=== PATIENT | female | born 1995 ===

== ENCOUNTER 2021-10-25 21:57 | Outpatient (CLI) | payer OTHER | END 2021-10-25 21:58 | disposition critical access hospital (66) | LOC: EMS 21:57 | DX: T39.1X2A Poisoning by 4-Aminophenol derivatives, intentional self-harm, initial encounter (principal); T39.312A Poisoning by propionic acid derivatives, intentional self-harm, initial encounter; T44.7X2A Poisoning by beta-adrenoreceptor antagonists, intentional self-harm, initial encounter; R11.0 Nausea; R45.89 Other symptoms and signs involving emotional state | CPT/HCPCS: A0425; A0429 ==

== ENCOUNTER 2021-10-25 22:14 | Emergency (ER) | payer OTHER ==
[2021-10-25] MEDS: SODIUM CHLORIDE 0.9% 1,000 ML IV STA (22:20)
[2021-10-25 22:38] LABS: BASOPHILS % (AUTO) 0.5 %; EOSINOPHILS % (AUTO) 0.3 %; HCT - HEMATOCRIT 38.3 % (37.0-47.0); LYMPHOCYTES # (AUTO) 1.2 10^3/uL (1.5-3.5); LYMPHOCYTES % (AUTO) 19.5 %; MEAN CORPUSCULAR HEMOGLOBIN 28.4 pg (27.0-31.0); MEAN CORPUSCULAR HGB CONC 33.9 g/dL (32.0-36.0); MEAN CORPUSCULAR VOLUME 83.8 fL (81.0-99.0); MEAN PLATELET VOLUME 9.2 fL (7.9-10.8); MONOCYTES # (AUTO) 0.3 10^3/uL (0.0-1.0); MONOCYTES % (AUTO) 4.6 %; NEUTROPHILS # (AUTO) 4.4 10^3/uL (1.5-6.6); NEUTROPHILS % (AUTO) 74.9 %; PLT - PLATELET COUNT 347 10^3/uL (130-450); RED BLOOD COUNT 4.57 10^6/uL (4.20-5.40); RED CELL DISTRIBUTION WIDTH 12.5 % (12.0-15.0); WHITE BLOOD COUNT 5.9 x10^3/uL (4.8-10.8)
[2021-10-25 22:39] LABS: VBG BASE EXCESS -3.4 mmol/L (-2 - +2); VBG HCO3 17.6 mmol/L (23-28); VBG PCO2 22.7 mmHg (41-51); VBG PH 7.508 (7.31-7.41); VBG PO2 39.8 mmHg (25-47); VBG TOTAL CO2 18.3 mmol/L (24-29)
[2021-10-25 22:40] LABS: VBG OXYGEN SATURATION 81.6 % (60-80)
[2021-10-25 22:49] LABS: MUDS CUTOFF CONCENTRATIONS CUTOFF CONC BELOW:
[2021-10-25 22:53] LABS: GLUCOSE, URINE (UA) NEGATIVE (NEGATIVE); KETONES,URINE (UA) 40 mg/dL (NEGATIVE); LEUKOCYTE ESTERASE, URINE NEGATIVE (NEGATIVE); NITRITE,URINE NEGATIVE (NEGATIVE); OCCULT BLOOD,URINE SMALL (NEGATIVE); PH,URINE 5.5 PH (5.0-7.5); PROTEIN,URINE TRACE mg/dL (NEGATIVE); UROBILINOGEN,URINE 0.2 (NORMAL) E.U./dL (NORMAL)
[2021-10-25 22:54] LABS: ACETAMINOPHEN 27 ug/mL (10-30); ALBUMIN 4.1 g/dL (3.2-5.5); ALBUMIN/GLOBULIN RATIO 1.4 (1.0-2.2); ALKALINE PHOSPHATASE 52 IU/L (42-121); ALT ALANINE AMINOTRANSFERASE 17 IU/L (10-60); AST ASPARTATE AMINOTRANSFERASE 22 IU/L (10-42); BILIRUBIN,TOTAL 0.6 mg/dL (0.2-1.0); BUN - BLOOD UREA NITROGEN 10 mg/dL (6-20); CALCIUM 8.6 mg/dL (8.5-10.3); CARBON DIOXIDE - CO2 18 mmol/L (21-32); CHLORIDE 106 mmol/L (101-111); CREATININE 0.8 mg/dL (0.4-1.0); ETOH - ETHANOL < 5.0 mg/dL; GFR - MDRD 88 (>89); GLUCOSE 114 mg/dL (70-100); LIPASE 25 U/L (22-51); POTASSIUM 3.4 mmol/L (3.5-5.0); SALICYLATE < 6.0 mg/dL; SODIUM 138 mmol/L (135-145); TOTAL PROTEIN 7.1 g/dL (6.7-8.2)
--- NOTE | 2021-10-25 23:02 | ED Physician Documentation ---
History of Present Illness - Stated complaint Stated Complaint: OD - Chief complaint Chief Complaint: MHE - Additonal information Additional information: 26yF presents s/p attempted overdose. 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 Patient states the last time she took tylenol was 4pm and she thinks she took about 9 tablets at that time. she is unsure of time course on the propranolol or ibuprofen. endorses SI and states she doesn't want to live anymore and she took pills in attempt to end her life. further history limited by patient emotional distress/tearfulness. Review of Systems Unable to obtain: Uncooperative PD PAST MEDICAL HISTORY - Present Medications Home Medications: Ambulatory Orders Medication Instructions Recorded Confirmed Propranolol [Inderal] 10 mg PO DAILY 10/25/21 10/25/21 - Allergies Allergies/Adverse Reactions: Allergies Allergy/AdvReac Type Severity Reaction Status Date / Time No Known Drug Allergies Allergy Verified 10/25/21 22:26 PD ED PE NORMAL - Vitals Vital signs reviewed: Yes - General General: Alert and oriented X 3, No acute distress, Well developed/nourished, Other (tearful appearing) - HEENT HEENT: Atraumatic, PERRL, EOMI, Moist mucous membranes, Pharynx benign - Neck Neck: Supple, no meningeal sign - Cardiac Cardiac: RRR - Respiratory Respiratory: No respiratory distress, Clear bilaterally - Abdomen Abdomen: Non tender, Non distended - Derm Derm: Normal color, Warm and dry - Extremities Extremities: No deformity - Neuro Neuro: Alert and oriented X 3, No motor deficit, No sensory deficit - Psych Psych: Other (tearful, depressed affect, with quiet, slow speech. blunted affect. limited eye contact) Results - Vitals Vitals: Vital Signs - 24 hr 10/25/21 10/25/21 10/26/21 22:49 23:00 00:30 Temperature 37.3 C Heart Rate 88 91 90 Respiratory 25 H 13 13 Rate Blood Pressure 107/64 111/70 110/69 O2 Saturation 100 100 99 10/26/21 10/26/21 10/26/21 01:00 01:30 02:00 Temperature Heart Rate 84 89 99 Respiratory 23 27 H 17 Rate Blood Pressure 110/64 108/64 106/67 O2 Saturation 98 98 97 10/26/21 10/26/21 10/26/21 02:30 03:00 04:30 Temperature Heart Rate 94 94 94 Respiratory 22 18 17 Rate Blood Pressure 113/68 107/65 106/60 O2 Saturation 94 98 93 Oxygen O2 Source Room air - EKG (time done) 2247 Rate: Rate (enter#) (89) Rhythm: NSR Intervals: Prolonged QT (qt 410/[id number]) - Labs Labs: Laboratory Tests 10/25/21 10/25/21 10/25/21 22:33 22:33 22:33 WBC 5.9 RBC 4.57 Hgb 13.0 Hct 38.3 MCV 83.8 MCH 28.4 MCHC 33.9 RDW 12.5 Plt Count 347 MPV 9.2 Neut # (Auto) 4.4 Lymph # (Auto) 1.2 L [place] # (Auto) 0.3 Eos # (Auto) 0.0 Baso # (Auto) 0.0 Absolute Nucleated RBC 0.00 Nucleated RBC % 0.0 VBG pH VBG pCO2 VBG pO2 VBG HCO3 VBG Total CO2 VBG O2 Saturation VBG Base Excess Sodium 138 Potassium 3.4 L Chloride 106 Carbon Dioxide 18 L Anion Gap 14.0 H BUN 10 Creatinine 0.8 Estimated GFR (MDRD) 88 L Glucose 114 H Lactic Acid Calcium 8.6 Total Bilirubin 0.6 AST 22 ALT 17 Alkaline Phosphatase 52 Total Protein 7.1 Albumin 4.1 Globulin 3.0 Albumin/Globulin Ratio 1.4 Lipase 25 TSH 0.65 Urine Color Urine Clarity Urine pH Ur Specific [place] Urine Protein Urine Glucose (UA) Urine Ketones Urine Occult Blood Urine Nitrite Urine Bilirubin Urine Urobilinogen Ur Leukocyte Esterase Urine RBC Urine WBC Ur Epithelial Cells Ur Squamous Epith Cells Urine Bacteria Ur Microscopic Review Urine Culture Comments Urine HCG, Qual Salicylates < 6.0 Urine Opiates Screen Ur Oxycodone Screen Urine Methadone Screen Ur Propoxyphene Screen Acetaminophen 27 Ur Barbiturates Screen Ur Tricyclics Screen Ur Phencyclidine Scrn Ur Amphetamine Screen U Methamphetamines Scrn U Benzodiazepines Scrn Urine Cocaine Screen U Cannabinoids Screen Ethyl Alcohol < 5.0 10/25/21 10/25/21 10/25/21 22:33 22:33 22:38 WBC RBC Hgb Hct MCV MCH MCHC RDW Plt Count MPV Neut # (Auto) Lymph # (Auto) [place] # (Auto) Eos # (Auto) Baso # (Auto) Absolute Nucleated RBC Nucleated RBC % VBG pH 7.508 H VBG pCO2 22.7 L VBG pO2 39.8 VBG HCO3 17.6 L VBG Total CO2 18.3 L VBG O2 Saturation 81.6 H VBG Base Excess -3.4 L Sodium Potassium Chloride Carbon Dioxide Anion Gap BUN Creatinine Estimated GFR (MDRD) Glucose Lactic Acid 1.8 Calcium Total Bilirubin AST ALT Alkaline Phosphatase Total Protein Albumin Globulin Albumin/Globulin Ratio Lipase TSH Urine Color DARK YELLOW Urine Clarity HAZY Urine pH 5.5 Ur Specific [place] 1.025 Urine Protein TRACE Urine Glucose (UA) NEGATIVE Urine Ketones 40 H Urine Occult Blood SMALL H Urine Nitrite NEGATIVE Urine Bilirubin NEGATIVE Urine Urobilinogen 0.2 (NORMAL) Ur Leukocyte Esterase NEGATIVE Urine RBC 0-5 Urine WBC 0-3 Ur Epithelial Cells GROUP BURNER MACHINE Ur Squamous Epith Cells FEW Squamous Urine Bacteria None Seen Ur Microscopic Review INDICATED Urine Culture Comments NOT INDICATED Urine HCG, Qual NEGATIVE Salicylates Urine Opiates Screen NEGATIVE Ur Oxycodone Screen NEGATIVE Urine Methadone Screen NEGATIVE Ur Propoxyphene Screen NEGATIVE Acetaminophen Ur Barbiturates Screen NEGATIVE Ur Tricyclics Screen NEGATIVE Ur Phencyclidine Scrn NEGATIVE Ur Amphetamine Screen NEGATIVE U Methamphetamines Scrn NEGATIVE U Benzodiazepines Scrn NEGATIVE Urine Cocaine Screen NEGATIVE U Cannabinoids Screen NEGATIVE Ethyl Alcohol 10/26/21 10/26/21 04:07 04:07 WBC RBC Hgb Hct MCV MCH MCHC RDW Plt Count MPV Neut # (Auto) Lymph # (Auto) [place] # (Auto) Eos # (Auto) Baso # (Auto) Absolute Nucleated RBC Nucleated RBC % VBG pH VBG pCO2 VBG pO2 VBG HCO3 VBG Total CO2 VBG O2 Saturation VBG Base Excess Sodium 136 Potassium 3.4 L Chloride 107 Carbon Dioxide 18 L Anion Gap 11.0 BUN 9 Creatinine 0.7 Estimated GFR (MDRD) 103 Glucose 88 Lactic Acid Calcium 8.0 L Total Bilirubin 0.7 AST 17 ALT 15 Alkaline Phosphatase 49 Total Protein 6.3 L Albumin 3.4 Globulin 2.9 Albumin/Globulin Ratio 1.2 Lipase 27 TSH Urine Color Urine Clarity Urine pH Ur Specific [place] Urine Protein Urine Glucose (UA) Urine Ketones Urine Occult Blood Urine Nitrite Urine Bilirubin Urine Urobilinogen Ur Leukocyte Esterase Urine RBC Urine WBC Ur Epithelial Cells Ur Squamous Epith Cells Urine Bacteria Ur Microscopic Review Urine Culture Comments Urine HCG, Qual Salicylates Urine Opiates Screen Ur Oxycodone Screen Urine Methadone Screen Ur Propoxyphene Screen Acetaminophen 10 Ur Barbiturates Screen Ur Tricyclics Screen Ur Phencyclidine Scrn Ur Amphetamine Screen U Methamphetamines Scrn U Benzodiazepines Scrn Urine Cocaine Screen U Cannabinoids Screen Ethyl Alcohol PD MEDICAL DECISION MAKING - ED course ED course: 26yF presents with suicide attempt with low dose propranolol, ibuprofen, tylenol. Tylenol is the main clinically significant potential ingestion per tox. on patient questioning it appears her ingestion of tylenol was spaced out over the course of the day with last ingestion 4pm. Patient c/o nausea but no vomiting. symptomatic care provided. patient had 1L NS via ems and a 2nd liter is hanging now. vitals and exam WNL. Tox labs sent. Tylenol level 27 at 6 hours post ingestion. unlikely to have a clinically significant overdose given the time frame. 12am - d/w Dr. Chris Kent , spindle repairer at poison control center who recommends 4 hour f/u LFTs and tylenol level. If normal (tylenol 10 or less), then we can medically clear. 4:30am - lft's continue to be normal and tylenol level is 10. patient medically cleared for voluntary psych placement.
[2021-10-25 23:03] LABS: BILIRUBIN,URINE NEGATIVE (NEGATIVE); ICTOTEST,URINE NEGATIVE
[2021-10-25 23:04] LABS: AMPHETAMINE SCREEN,URINE NEGATIVE (NEGATIVE); BARBITURATE SCREEN,UR NEGATIVE (NEGATIVE); BENZODIAZEPINES SCREEN, URINE NEGATIVE (NEGATIVE); CLARITY,URINE HAZY (CLEAR); COCAINE SCREEN URINE NEGATIVE (NEGATIVE); HCG UR QUAL NEGATIVE; METHADONE SCREEN, URINE NEGATIVE (NEGATIVE); METHAMPHETAMINES SCREEN, URINE NEGATIVE (NEGATIVE); OPIATE SCREEN, URINE NEGATIVE (NEGATIVE); OXYCODONE SCREEN, URINE NEGATIVE (NEGATIVE); PROPOXYPHENE SCREEN, URINE NEGATIVE (NEGATIVE); THC CANNABINOID SCREEN, URINE NEGATIVE (NEGATIVE); TRICYCLIC ANTIDEPRESSANT,URINE NEGATIVE (NEGATIVE)
[2021-10-25 23:12] LABS: RBC,URINE 0-5 /HPF (0-5); SQUAMOUS EPITHELIAL CELL,UR FEW Squamous (<= Few); WBC,URINE 0-3 /HPF (0-5)
[2021-10-25] MEDS: ONDANSETRON 4 MG/2 ML VIAL IVP STA (23:12)
[2021-10-25] MEDS: FAMOTIDINE 20 MG/2 ML VIAL IVP STA (23:12)
[2021-10-25 23:13] LABS: BACTERIA,URINE None Seen /HPF (None Seen)
[2021-10-26] MEDS: SODIUM CHLORIDE 0.9% 1,000 ML IV STA (00:27)
[2021-10-26] MEDS ORDERED: haloperidoL 1 MG TABLET PO STA (04:18)
[2021-10-26 04:25] LABS: ALBUMIN 3.4 g/dL (3.2-5.5); ALBUMIN/GLOBULIN RATIO 1.2 (1.0-2.2); BILIRUBIN,TOTAL 0.7 mg/dL (0.2-1.0); CREATININE 0.7 mg/dL (0.4-1.0); POTASSIUM 3.4 mmol/L (3.5-5.0); TOTAL PROTEIN 6.3 g/dL (6.7-8.2)
[2021-10-26 06:12] LABS: CORONAVIRUS 229E-RESP PCR NOT DETECTED; CORONAVIRUS HKU1-RESP PCR NOT DETECTED; CORONAVIRUS NL63-RESP PCR NOT DETECTED; CORONAVIRUS OC43-RESP PCR NOT DETECTED
[2021-10-26 06:14] LABS: B. PARAPERTUSSIS- RESP PCR PAN NOT DETECTED; B. PERTUSSIS- RESP PCR PANEL NOT DETECTED; C. PNEUMONIAE- RESP PCR PANEL NOT DETECTED; HUMAN METAPNEUMOVIRUS NOT DETECTED; INFLUENZA A- RESP PCR PANEL NOT DETECTED; INFLUENZA B - RESP PCR PANEL NOT DETECTED; M. PNEUMONIAE- RESP PCR PANEL NOT DETECTED; PARAINFLUENZA VIRUS 1 NOT DETECTED; PARAINFLUENZA VIRUS 2 NOT DETECTED; PARAINFLUENZA VIRUS 3 NOT DETECTED; PARAINFLUENZA VIRUS 4 NOT DETECTED; RHINOVIRUS/ENTEROVIRUS NOT DETECTED; RSV- RESP PCR PANEL NOT DETECTED; SARS-CoV-2 -RESP PCR PANEL DETECTED
[2021-10-26 14:26] VITALS: BP 117/66
== END 2021-10-26 14:46 ==
LOC: ED 22:14
DX: T44.7X2A Poisoning by beta-adrenoreceptor antagonists, intentional self-harm, initial encounter (principal); T39.312A Poisoning by propionic acid derivatives, intentional self-harm, initial encounter; T39.1X2A Poisoning by 4-Aminophenol derivatives, intentional self-harm, initial encounter; F32.A Depression, unspecified; U07.1 COVID-19
CPT/HCPCS: 0202U; 36415; 80053; 80306; 80307; 80320; 80329; 81001; 81025; 82803; 83605; 83690; 84443; 85025; 93005; 96374; 99285; 81003; 87086

== ENCOUNTER 2022-01-23 23:35 | Emergency (ER) | payer OTHER ==
[2022-01-23 23:48] VITALS: BP 113/62
[2022-01-24 00:14] LABS: BILIRUBIN,URINE NEGATIVE (NEGATIVE); GLUCOSE, URINE (UA) NEGATIVE (NEGATIVE); KETONES,URINE (UA) NEGATIVE (NEGATIVE); LEUKOCYTE ESTERASE, URINE SMALL (NEGATIVE); NITRITE,URINE NEGATIVE (NEGATIVE); OCCULT BLOOD,URINE TRACE-INTA (NEGATIVE); PROTEIN,URINE NEGATIVE (NEGATIVE); UROBILINOGEN,URINE 0.2 (NORMAL) E.U./dL (NORMAL)
[2022-01-24 00:16] LABS: CLARITY,URINE CLEAR (CLEAR); HCG UR QUAL NEGATIVE
[2022-01-24 00:22] LABS: BACTERIA,URINE Rare /HPF (None Seen); RBC,URINE 0-5 /HPF (0-5); SQUAMOUS EPITHELIAL CELL,UR MOD Squamous (<= Few)
[2022-01-24] MEDS ORDERED: DOXYCYCLINE 100 MG TABLET PO STA (01:54)
[2022-01-24] MEDS ORDERED: LIDOCAINE 1% 2 ML VIAL MC ONE (01:54)
[2022-01-24] MEDS ORDERED: cefTRIAXone 500 MG VIAL IM STA (01:54)
[2022-01-24] MEDS ORDERED: metroNIDAZOLE 250 MG TABLET PO STA (01:56)
--- NOTE | 2022-01-24 01:59 | ED Physician Documentation ---
History of Present Illness - Stated complaint Stated Complaint: FEMALE - Chief complaint Chief Complaint: General - History obtained from History obtained from: Patient - Additonal information Additional information: Patient with no significant past medical history presenting for evaluation of abnormal vaginal discharge for 3 days. Patient reports having yellow vaginal discharge with vaginal irritation and dryness. She did have unprotected intercourse over the weekend with a New sexual partner. Patient denies concern for .She denies dysuria, abdominal pain, vomiting, Fever. She denies using Soaps, lotions, or douching to the vaginal area. Review of Systems Constitutional: denies: Fever Nose: denies: Congestion Cardiac: denies: Chest pain / pressure Respiratory: denies: Dyspnea, Cough GI: denies: Abdominal Pain, Vomiting : reports: Discharge. denies: Dysuria, Vaginal bleeding Skin: denies: Rash Musculoskeletal: denies: Back pain Neurologic: denies: Generalized weakness PD PAST MEDICAL HISTORY - Past Medical History Past Medical History: No Psych: Depression - Past Surgical History Past Surgical History: Yes General: Appendectomy Ortho: Knee replacement - Present Medications Home Medications: Ambulatory Orders Medication Instructions Recorded Confirmed Propranolol [Inderal] 10 mg PO DAILY 10/25/21 01/23/22 Sertraline [Zoloft] 25 mg PO DAILY 01/23/22 01/23/22 Doxycycline Hyclate 100 mg PO BID #14 tab.sr 01/24/22 metroNIDAZOLE [Flagyl] 500 mg PO BID 7 Days #14 tablet 01/24/22 - Allergies Allergies/Adverse Reactions: Allergies Allergy/AdvReac Type Severity Reaction Status Date / Time No Known Drug Allergies Allergy Verified 01/23/22 23:49 - Social History Does the pt smoke?: No Smoking Status: Never smoker Does the pt drink ETOH?: Yes Does the pt have substance abuse?: No - Immunizations Immunizations are current?: Yes - POLST Patient has POLST: No PD ED PE NORMAL - General General: Alert and oriented X 3, No acute distress, Well developed/nourished - HEENT HEENT: Atraumatic, Moist mucous membranes - Respiratory Respiratory: No respiratory distress - Abdomen Abdomen: Normal bowel sounds, Soft, Non tender, Non distended - Female Female : Information Technology Internship present (Bette LE), Other (Normal external exam with no rashes or lesions, cervical os is closed, yellow vaginal discharge, mild cervical motion tenderness, no adnexal tenderness or fullness, no masses palpated, no blood in the vaginal vault) - Derm Derm: No rash - Extremities Extremities: No edema - Psych Psych: Normal mood, Normal affect Results - Vitals Vitals: Vital Signs - 24 hr 01/23/22 01/24/22 01/24/22 23:44 00:57 02:35 Temperature 36.2 C L Heart Rate 91 Respiratory 16 18 Rate Blood Pressure 113/62 O2 Saturation 99 Oxygen O2 Source Room air - Labs Labs: Laboratory Tests 01/23/22 01/24/22 01/24/22 00:07 01:14 01:14 Urine Color YELLOW Urine Clarity CLEAR Urine pH 6.0 Ur Specific [place] >=1.030 H Urine Protein NEGATIVE Urine Glucose (UA) NEGATIVE Urine Ketones NEGATIVE Urine Occult Blood TRACE-INTA Urine Nitrite NEGATIVE Urine Bilirubin NEGATIVE Urine Urobilinogen 0.2 (NORMAL) Ur Leukocyte Esterase SMALL H Urine RBC 0-5 Urine WBC 4-5 Ur Squamous Epith Cells MOD Squamous H Urine Bacteria Rare Ur Microscopic Review INDICATED Urine Culture Comments NOT INDICATED Urine HCG, Qual NEGATIVE C. glabrata (PCR) UNRESOLVED A C. krusei (PCR) UNRESOLVED A Sofia species DNA UNRESOLVED A Chlam trachomat DNA PCR NEGATIVE N.gonorrhoeae DNA (PCR) NEGATIVE T. vaginalis (PCR) NEGATIVE UNRESOLVED A Bact Vaginosis (PCR) UNRESOLVED A PD MEDICAL DECISION MAKING - ED course Complexity details: d/w patient ED course: Patient with yellow vaginal discharge x3 days. She has recently had unprotected intercourse. She does have yellow discharge on exam with cervical motion tenderness, concerning for PID. Overall she is well-appearing with no fever, abdominal or pelvic tenderness to suggest abscess, torsion or other intra- abdominal pathology. Urine is negative. Patient is agreeable to treatment with Rocephin, doxycycline and Flagyl.Vaginosis swab has not yet resulted and patient will be contacted if it is abnormal. [id number] - Notified by lab that vaginosis swab resulted as an error x 2 which can happen if there is lubricant on swab or if it's bloody. Tech acknowledges that the swab was not bloody and lubricant was only the speculum and not in the way of obtaining a proper specimen. Gonorrhea chlamydia and trichomonas testing was negative. Symptoms could be related to BV which is being treated by Flagyl. Will have AM team reach out to patient to notify that yeast test was inconclusive and that pt should seek retesting if symptoms are not improving. D/W sales representative business courses Kait who will relay to day team. Departure - Departure Disposition: 01 Home, Self Care Clinical Impression: Vaginal discharge, PID (acute pelvic inflammatory disease) Condition: Stable Instructions: ED PID Prescriptions: Doxycycline Hyclate 100 mg PO BID #14 tab.sr metroNIDAZOLE [Flagyl] 500 mg PO BID 7 Days #14 tablet Comments: You have been evaluated for abnormal vaginal discharge.I am concerned it could be from a sexually transmitted infection.After discussion we have decided that it would be best to treat you for sexually transmitted infections as the test result will not come back for another day. The yeast test should come back tonight and if it is abnormal I will give you a phone call and send another prescription to the pharmacy. You have 2 antibiotic prescriptions which are waiting for you at the [facility] in [place]. Please take these antibiotics as prescribed. If The test for gonorrhea, chlamydia or trichomonas is abnormal you should receive a phone call. Please do not engage in sexual activity until you have completed all your antibiotics. If any of your tests are abnormal for sexually transmitted infections, you should inform any of your recent sexual partners that they should also be tested and/or treated. Return to the emergency department with any worsening symptoms such as fever, abdominal pain, pelvic pain, vomiting, any concerns. Discharge Date/Time: 01/24/22 02:39
[2022-01-24 03:55] LABS: CHLAMYDIA TRACHOMATIS DNA NEGATIVE (NEGATIVE); NEISSERIA GONORRHOEAE DNA NEGATIVE (NEGATIVE)
[2022-01-24 04:55] LABS: BACTERIAL VAGINOSIS DNA UNRESOLVED (NEGATIVE); CANDIDA KRUSEI DNA UNRESOLVED (NEGATIVE)
[2022-01-24 04:56] LABS: CANDIDA GLABRATA DNA UNRESOLVED (NEGATIVE); CANDIDA GROUP DNA UNRESOLVED (NEGATIVE); TRICHOMONAS VAGINALIS DNA UNRESOLVED (NEGATIVE)
[2022-01-27 14:19] LABS: TRICHOMONAS VAGINALIS DNA NEGATIVE (NEGATIVE)
== END 2022-01-24 02:39 | disposition home or self-care (01) ==
LOC: ED 23:35
DX: N73.9 Female pelvic inflammatory disease, unspecified (principal)
CPT/HCPCS: 81001; 81025; 81514; 87491; 87591; 87661; 96372; 99283; 99284; A9270; 81003; 87086

== ENCOUNTER 2022-01-27 22:51 | Emergency (ER) | payer OTHER ==
[2022-01-27 23:01] VITALS: BP 132/78
[2022-01-27 23:15] LABS: BILIRUBIN,URINE NEGATIVE (NEGATIVE); GLUCOSE, URINE (UA) NEGATIVE (NEGATIVE); KETONES,URINE (UA) NEGATIVE (NEGATIVE); LEUKOCYTE ESTERASE, URINE LARGE (NEGATIVE); NITRITE,URINE NEGATIVE (NEGATIVE); OCCULT BLOOD,URINE NEGATIVE (NEGATIVE); PROTEIN,URINE NEGATIVE (NEGATIVE); UROBILINOGEN,URINE 0.2 (NORMAL) E.U./dL (NORMAL)
[2022-01-27 23:24] LABS: BACTERIA,URINE Moderate /HPF (None Seen); CLARITY,URINE CLEAR (CLEAR); RBC,URINE 0-5 /HPF (0-5); SQUAMOUS EPITHELIAL CELL,UR MOD Squamous (<= Few)
[2022-01-27 23:59] LABS: HCG UR QUAL NEGATIVE
--- NOTE | 2022-01-28 00:42 | Ultrasound Report ---
PROCEDURE: Pelvic w/Doppler Complete INDICATIONS: L pelvic pain TECHNIQUE: Transabdominal and transvaginal ultrasound of the pelvis. COMPARISON: None. FINDINGS: Uterus measures 6.9 x 3.6 x 2.5 cm, volume of 32 cc. Uterine echotexture is within normal limits. No fibroids seen. The endometrium measures 0.3 cm. Right ovary measures 3.2 x 2.7 x 1.7 cm, volume of 8 cc. Left ovary measures 3.2 x 2.3 x 2.1 cm, volume of 8 cc. Blood flow seen in both ovaries. Small ovarian follicles bilaterally. IMPRESSION: No findings to suggest ovarian torsion. Sonographic appearance of the uterus and endometrium is normal. Reviewed by: Anand Brown MD on 01/28/2022 12:40 AM PDT Approved by: Anand Brown MD on 01/28/2022 12:40 AM PDT Station ID: [id number]
[2022-01-28] MEDS ORDERED: FLUCONAZOLE 100 MG TABLET PO STA (00:59)
--- NOTE | 2022-01-28 01:04 | ED Physician Documentation ---
PD HPI FEMALE - Stated complaint Stated Complaint: FEMALE - Chief complaint Chief Complaint: UTI - History obtained from History obtained from: Patient - Additional information Additional information: Patient is a 26-year-old female with no significant past medical history presenting for evaluation of continued vaginal itching and discomfort For 1 week.She was seen 4 days ago and started on treatment for PID. Unfortunately her vaginosis swab was Inconclusive. Patient has had continued vaginal itching, her discharge has improved. She denies fever, abdominal pain, vomiting, diarrhea, dysuria. She denies vaginal bleeding. She denies use of tampons or condoms. She denies concerns for retained foreign body in the vagina. Review of Systems Constitutional: denies: Fever Nose: denies: Congestion Cardiac: denies: Chest pain / pressure Respiratory: denies: Dyspnea, Cough GI: denies: Abdominal Pain, Vomiting, Diarrhea : reports: Discharge. denies: Dysuria Skin: denies: Rash Musculoskeletal: denies: Back pain Neurologic: denies: Headache PD PAST MEDICAL HISTORY - Past Medical History Past Medical History: Yes Psych: Depression - Past Surgical History Past Surgical History: Yes General: Appendectomy Ortho: Knee replacement - Present Medications Home Medications: Ambulatory Orders Medication Instructions Recorded Confirmed Propranolol [Inderal] 10 mg PO DAILY 10/25/21 01/23/22 Sertraline [Zoloft] 25 mg PO DAILY 01/23/22 01/23/22 Doxycycline Hyclate 100 mg PO BID #14 tab.sr 01/24/22 metroNIDAZOLE [Flagyl] 500 mg PO BID 7 Days #14 tablet 01/24/22 - Allergies Allergies/Adverse Reactions: Allergies Allergy/AdvReac Type Severity Reaction Status Date / Time No Known Drug Allergies Allergy Verified 01/27/22 22:58 - Social History Does the pt smoke?: No Smoking Status: Never smoker Does the pt drink ETOH?: Yes Does the pt have substance abuse?: No - Immunizations Immunizations are current?: Yes - POLST Patient has POLST: No PD ED PE NORMAL - General General: Alert and oriented X 3, No acute distress, Well developed/nourished - HEENT HEENT: Atraumatic, Moist mucous membranes - Neck Neck: Supple, no meningeal sign - Cardiac Cardiac: RRR, No murmur, Strong equal pulses - Respiratory Respiratory: No respiratory distress, Clear bilaterally - Abdomen Abdomen: Normal bowel sounds, Soft, Non distended, Other (Mild left adnexal tenderness) - Female Female : Senior Planning Manager present (Gin RN), Other (Normal external exam, yellow vaginal discharge at vaginal opening, patient declined speculum exam due to a experience discomfort on previous visit, denies concern for retained foreign body) - Derm Derm: Normal color - Extremities Extremities: No edema - Neuro Neuro: No motor deficit, Normal speech - Psych Psych: Normal mood, Normal affect PD ED PE EXPANDED - Abdomen Abdomen Visual: 1 - tenderness Results - Vitals Vitals: Vital Signs - 24 hr 01/27/22 22:58 Temperature 36.3 C L Heart Rate 82 Respiratory 16 Rate Blood Pressure 132/78 H O2 Saturation 100 Oxygen O2 Source Room air - Labs Labs: Microbiology 01/28/22 00:40 Wet Prep - Final Vaginal Laboratory Tests 01/27/22 01/27/22 01/27/22 00:40 23:10 23:10 Urine Color YELLOW Urine Clarity CLEAR Urine pH 7.0 Ur Specific [place] 1.025 Urine Protein NEGATIVE Urine Glucose (UA) NEGATIVE Urine Ketones NEGATIVE Urine Occult Blood NEGATIVE Urine Nitrite NEGATIVE Urine Bilirubin NEGATIVE Urine Urobilinogen 0.2 (NORMAL) Ur Leukocyte Esterase LARGE H Urine RBC 0-5 Urine WBC 6-10 H Ur Squamous Epith Cells MOD Squamous H Urine Bacteria Moderate H Ur Microscopic Review INDICATED Urine Culture Comments NOT INDICATED Urine HCG, Qual NEGATIVE C. glabrata (PCR) NEGATIVE C. krusei (PCR) NEGATIVE [place] species DNA POSITIVE A T. vaginalis (PCR) NEGATIVE Bact Vaginosis (PCR) NEGATIVE PD MEDICAL DECISION MAKING - ED course ED course: Patient with 1 week history of vaginal discharge and irritation. Second visit for the same. Patient had mild tenderness in lower pelvis on initial exam so an ultrasound was obtained. It is negative forTorsion or abscess.Patient declined repeat speculum exam and denies concern for retained foreign body. Wet prep and vaginosis swabs were obtainedVia blind insertion.Wet prep is negative but v aginosis swab is positive for Sofia. Patient was treated with Diflucan. She was counseled that her symptoms are expected to improve but if they do not then she would need another evaluation. Repeat abdominal exam is benign. Departure - Departure Disposition: 01 Home, Self Care Clinical Impression: Vaginal irritation Condition: Stable Instructions: ED Vaginal Infec Fungal Sofia Comments: You were evaluated for vaginal discomfort and discharge. You recently had STD testing and your tests were negative for gonorrhea, chlamydia and trichomonas. You had an ultrasound performed tonight that did not show an abscess or issue with your ovaries. We repeated a swab to check for yeast as the last test was inconclusive. The quick test was negative for yeast but a more reliable test Was also done but will not be resulted for several more hours. Given your symptoms I am concerned you could have a yeast infection. We did give you a pill to help you with yeast. If your symptoms are still not improving, you need a repeat exam with a speculum. Please follow-up with your primary care doctor or hair stylist. Discharge Date/Time: 01/28/22 01:16
[2022-01-28 02:25] LABS: BACTERIAL VAGINOSIS DNA NEGATIVE (NEGATIVE); CANDIDA KRUSEI DNA NEGATIVE (NEGATIVE); TRICHOMONAS VAGINALIS DNA NEGATIVE (NEGATIVE)
[2022-01-28 02:26] LABS: CANDIDA GLABRATA DNA NEGATIVE (NEGATIVE); CANDIDA GROUP DNA POSITIVE (NEGATIVE)
== END 2022-01-28 01:16 | disposition home or self-care (01) ==
LOC: ED 22:51
DX: N89.8 Other specified noninflammatory disorders of vagina (principal); R10.814 Left lower quadrant abdominal tenderness
CPT/HCPCS: 76856; 81001; 81025; 81514; 87210; 93975; 99282; 99284; A9270; 81003; 87086